=== PATIENT | male | born 1950 | race Caucasian/White ===

== ENCOUNTER 2016-06-23 14:13 | Inpatient (IN) | payer OTHER ==
[~2016-06-23] VITALS: Ht 172.7 cm; Wt 66.0 kg
[~2016-06-23 14:13] MED LIST: ACYC-57 PO; GABA100C8 PO
[2016-06-23] MEDS ORDERED: SODIUM CHLORIDE 0.9% 1,000 ML IV ONE (14:38)
[2016-06-23] MEDS ORDERED: ONDANSETRON 2MG/ML, 2ML IVPush ONE (15:00)
[2016-06-23] MEDS ORDERED: SODIUM CHLORIDE FLUSH 10ML SYR IVF ONE (15:00)
[2016-06-23] MEDS ORDERED: MORPHINE SULFATE 4 MG/ML, 1ML IVPush PRN ×2 (15:00→18:00)
[2016-06-23] MEDS ORDERED: ONDANSETRON 2MG/ML, 2ML ONE ×2 (15:15→17:02)
[2016-06-23] MEDS ORDERED: MORPHINE SULFATE 4 MG/ML, 1ML ONE (15:15)
[2016-06-23 15:27] LABS: BLOOD UREA NITROGEN 6 mg/dL (7-18)
[2016-06-23 15:28] LABS: ASPARTATE AMINO TRANSFERASE 17 U/L (15-37)
[2016-06-23] MEDS ORDERED: FENTANYL PF 250 MCG/5ML ONE (16:24)
[2016-06-23] MEDS ORDERED: MIDAZOLAM 1 MG/ML, 2ML ONE (16:24)
[2016-06-23] MEDS ORDERED: BUPIVACAINE/PF-EPI 0.5% 1:200K ONE (16:55)
[2016-06-23] MEDS ORDERED: CEFAZOLIN 1,000 MG ONE (17:02)
[2016-06-23] MEDS ORDERED: DEXAMETHASONE 4 MG/ML, 5ML ONE (17:02)
[2016-06-23] MEDS ORDERED: PROPOFOL 10 MG/ML, 20ML ONE (17:02)
[2016-06-23] MEDS ORDERED: KETOROLAC 30 MG/1 ML ONE (17:02)
[2016-06-23] MEDS ORDERED: ROCURONIUM 10 MG/ML ONE (17:02)
[2016-06-23] MEDS ORDERED: SUCCINYLCHOLINE 20 MG/ML, 10ML ONE (17:02)
[2016-06-23] MEDS ORDERED: LORazepam 2 MG/ML, 1ML IV PRN (18:00)
[2016-06-23] MEDS ORDERED: DIPHENHYDRAMINE 25 MG CAPSULE PO PRN (18:00)
[2016-06-23] MEDS ORDERED: ONDANSETRON 2MG/ML, 2ML IVPush PRN ×2 (18:00→18:30)
[2016-06-23] MEDS ORDERED: ACETAMINOPHEN 650 MG/20.3 ML UDC ONE (18:14)
[2016-06-23] MEDS ORDERED: FENTANYL PF 100 MCG/2ML ONE (18:14)
[2016-06-23] MEDS ORDERED: METOPROLOL 1 MG/ML, 5ML ONE (18:15)
[2016-06-23] MEDS ORDERED: ACETAMINOPHEN 325 MG TABLET ONE (18:15)
[2016-06-23] MEDS ORDERED: OXYcodone 5 MG/5 ML ORAL.SOL UDC ONE (18:15)
[2016-06-23] MEDS ORDERED: FENTANYL PF 100 MCG/2ML IV PRN (18:30)
[2016-06-23] MEDS ORDERED: OXYcodone 5 MG/5 ML ORAL.SOL UDC PO PRN (18:30)
[2016-06-23] MEDS ORDERED: MEPERIDINE/PF 25MG/0.5ML IVPush PRN (18:30)
[2016-06-23] MEDS ORDERED: METOPROLOL 1 MG/ML, 5ML IV PRN (18:30)
[2016-06-23] MEDS ORDERED: hydrALAzine 20 MG/ML, 1ML IV PRN (18:30)
[2016-06-23] MEDS ORDERED: PROMETHAZINE 25 MG/ML, 1ML IV PRN (18:30)
[2016-06-23] MEDS ORDERED: ACETAMINOPHEN 325 MG TABLET PO PRN (18:30)
[2016-06-23] MEDS ORDERED: LABETALOL 5MG/ML, 20ML IV PRN (18:30)
[2016-06-23] MEDS ORDERED: HYDROmorphone 1 MG/ML, 1ML IV PRN (18:30)
[2016-06-23 20:00] VITALS: BP 143/85
[2016-06-23] MEDS: KETOROLAC 30 MG/1 ML IV PRN (21:39)
[2016-06-23] MEDS: POTASSIUM CHLORIDE 20 MEQ in D5%-0.45% NACL 1,000 ML IV SCH (23:08)
[2016-06-24 04:00] VITALS: BP 115/65
[2016-06-24] MEDS: KETOROLAC 30 MG/1 ML IV PRN (04:22)
[2016-06-24 04:24] VITALS: BP 139/72
[2016-06-24] MEDS: POTASSIUM CHLORIDE 20 MEQ in D5%-0.45% NACL 1,000 ML IV SCH (07:27)
[2016-06-24 08:00] VITALS: BP 143/64
[2016-06-24] MEDS ORDERED: HYDR-882 PO (09:40)
[2016-06-24] MEDS ORDERED: ONDA4TAB7 PO (09:41)
[2016-06-24] MEDS ORDERED: ASPI-770 PO (11:32)
[2016-06-24] MEDS ORDERED: LOPE1LIQ6 PO (11:33)
[2016-06-24] MEDS ORDERED: POTASS (11:35)
[2016-06-24] MEDS ORDERED: potassium gluconate PO (11:36)
== END 2016-06-24 11:35 | disposition home or self-care (01) | DRG 351 ==
LOC: ED 15:15 → EDIP 16:29 → 4NOR 19:40
PROVIDERS: ADMIT Surgery; ATTEND Surgery
PROC: 0T9B70Z Drainage of Bladder with Drainage Device, Via Natural or Artificial Opening (ICD-10-PCS; 2016-06-23)
PROC: 0YU50JZ Supplement Right Inguinal Region with Synthetic Substitute, Open Approach (ICD-10-PCS; principal; 2016-06-23 17:30)
DX: K40.90 Unilateral inguinal hernia, without obstruction or gangrene, not specified as recurrent (principal); K86.1 Other chronic pancreatitis; F12.90 Cannabis use, unspecified, uncomplicated; I10 Essential (primary) hypertension; J44.9 Chronic obstructive pulmonary disease, unspecified; Z83.3 Family history of diabetes mellitus
CPT/HCPCS: 36415; 71010; 74020; 80053; 81001; 83690; 83735; 85025; 85610; 96361; 96374; 96375; J0690; J1100; J1885; J2250; J2405; J2704; J3010; J3480; C1781; J0330; J7030; Q0163

== ENCOUNTER 2018-02-14 11:44 | Observation (INO) | payer OTHER ==
[~2018-02-14] VITALS: Ht 172.7 cm; Wt 65.9 kg
[~2018-02-14 11:44] MED LIST changes: +ASPI81TA59 PO; +GABA-826 PO; -GABA100C8 PO; +HYDR-3653 PO; +LOPE1LIQ6 PO; +ONDA4TAB7 PO; +POTASS; +potassium gluconate PO
[2018-02-14] MEDS ORDERED: SODIUM CHLORIDE FLUSH 10ML SYR IVF ONE (12:00)
[2018-02-14] MEDS ORDERED: SODIUM CHLORIDE 0.9% 1,000ML IVBOLUS ONE (12:00)
[2018-02-14] MEDS ORDERED: INDO25CA5 PO (12:08)
[2018-02-14] MEDS ORDERED: GABA300C10 PO (12:08)
[2018-02-14] MEDS ORDERED: ALLO300T PO (12:08)
[2018-02-14 12:16] LABS: BASOPHILS # (AUTO) 0.03 x10^3/uL (0-0.1); BASOPHILS % (AUTO) 1 % (0-1); EOSINOPHILS # (AUTO) 0.07 x10^3/uL (0-0.4); EOSINOPHILS % (AUTO) 1 % (1-7); LYMPHOCYTES # (AUTO) 2.44 x10^3/uL (1-3.4); LYMPHOCYTES % (AUTO) 33 % (22-44); MD NO; MEAN CORPUSCULAR HEMOGLOBIN 32.4 pg (27.5-34.5); MEAN CORPUSCULAR HGB CONC 33.9 g/dL (33.2-36.2); MEAN CORPUSCULAR VOLUME 95.5 fL (81-97); MEAN PLATELET VOLUME 8.3 fL (7.4-10.4); MONOCYTES # (AUTO) 0.58 x10^3/uL (0.2-0.8); MONOCYTES % (AUTO) 8 % (2-9); NEUTROPHILS # (AUTO) 4.38 x10^3/uL (1.8-6.8); NEUTROPHILS % (AUTO) 58 % (42-75); PLATELET COUNT 243 x10^3/uL (130-400); RED CELL DISTRIBUTION WIDTH 15.2 % (9.4-14.8)
[2018-02-14 12:25] LABS: INTERNATIONAL NORMALIZED RATIO 1.03 (0.93-1.1); PROTHROMBIN TIME 10.7 Seconds (9.6-11.5)
[2018-02-14 12:27] LABS: ALANINE AMINOTRANSFERASE 15 U/L (12-78); ALBUMIN 2.9 g/dL (3.4-5.0); ANION GAP 6 mmol/L (5-15); CALCIUM 8.4 mg/dL (8.5-10.1); CHLORIDE 109 mmol/L (98-107); CREATININE 0.81 mg/dL (0.7-1.3)
[2018-02-14 12:30] LABS: ALKALINE PHOSPHATASE 61 U/L (45-117); BILIRUBIN,TOTAL 0.5 mg/dL (0.2-1.0); TOTAL PROTEIN 6.8 g/dL (6.4-8.2)
[2018-02-14 12:51] LABS: ACETONE, SERUM Negative (Negative)
[2018-02-14 13:57] LABS: MICROSCOPIC NOT IND
[2018-02-14 14:09] LABS: CULTURE INDICATED? NO
[2018-02-14 15:13] LABS: CLOSTRIDIUM DIFFICILE ANTIGEN NEGATIVE; CLOSTRIDIUM DIFFICILE TOXIN NEGATIVE (Negative)
[2018-02-14 15:51] VITALS: BP 159/80
[2018-02-14] MEDS ORDERED: LOPERAMIDE 2 MG CAPSULE PO PRN (16:30)
[2018-02-14] MEDS ORDERED: hydrALAzine 20 MG/ML, 1ML IVPush PRN (16:30)
[2018-02-14] MEDS ORDERED: ACETAMINOPHEN 325 MG TABLET PO PRN (16:30)
[2018-02-14] MEDS ORDERED: ONDANSETRON ODT 4 MG PO PRN (16:30)
[2018-02-14] MEDS ORDERED: ENALAPRILAT 1.25 MG/ML, 2ML IVPush PRN (16:30)
[2018-02-14] MEDS ORDERED: ONDANSETRON 2MG/ML, 2ML IVPush PRN (16:30)
[2018-02-14] MEDS ORDERED: LIDODERM 5% PATCH TD PRN (16:30)
[2018-02-14] MEDS: D5%-0.45NACL+KCL 20MEQ 1,000 ML IV SCH (17:08)
[2018-02-14] MEDS: GABAPENTIN 100 MG CAPSULE PO SCH ×2 (17:08→20:54)
[2018-02-14] MEDS: NICOTINE 21 MG/24 HR PATCH.TD24 TD SCH (17:08)
[2018-02-14] MEDS: ENOXAPARIN 40 MG/0.4 ML SQ SCH (17:09)
[2018-02-14 17:33] VITALS: BP 159/80
[2018-02-14 20:26] VITALS: BP 98/54
[2018-02-15] MEDS: D5%-0.45NACL+KCL 20MEQ 1,000 ML IV SCH ×2 (02:42→16:53)
[2018-02-15 03:33] VITALS: BP 120/75
[2018-02-15 05:29] LABS: BASOPHILS # (AUTO) 0.08 x10^3/uL (0-0.1); BASOPHILS % (AUTO) 1 % (0-1); EOSINOPHILS # (AUTO) 0.28 x10^3/uL (0-0.4); EOSINOPHILS % (AUTO) 4 % (1-7); LYMPHOCYTES # (AUTO) 2.69 x10^3/uL (1-3.4); LYMPHOCYTES % (AUTO) 35 % (22-44); MD NO; MEAN CORPUSCULAR HEMOGLOBIN 32.1 pg (27.5-34.5); MEAN CORPUSCULAR HGB CONC 33.9 g/dL (33.2-36.2); MEAN CORPUSCULAR VOLUME 94.5 fL (81-97); MEAN PLATELET VOLUME 9.1 fL (7.4-10.4); MONOCYTES # (AUTO) 0.53 x10^3/uL (0.2-0.8); MONOCYTES % (AUTO) 7 % (2-9); NEUTROPHILS # (AUTO) 4.05 x10^3/uL (1.8-6.8); NEUTROPHILS % (AUTO) 53 % (42-75); PLATELET COUNT 229 x10^3/uL (130-400); RED BLOOD COUNT 4.13 x10^6/uL (4.38-5.82); RED CELL DISTRIBUTION WIDTH 15.3 % (9.4-14.8)
[2018-02-15 05:34] LABS: CALCIUM 8.1 mg/dL (8.5-10.1); CHLORIDE 111 mmol/L (98-107)
[2018-02-15 05:39] LABS: ALANINE AMINOTRANSFERASE 15 U/L (12-78); ALBUMIN 2.6 g/dL (3.4-5.0); ALKALINE PHOSPHATASE 55 U/L (45-117); ANION GAP 6 mmol/L (5-15); BILIRUBIN,TOTAL 0.4 mg/dL (0.2-1.0); CREATININE 0.73 mg/dL (0.7-1.3); TOTAL PROTEIN 5.9 g/dL (6.4-8.2)
[2018-02-15 07:32] VITALS: BP 155/89
[2018-02-15] MEDS: GABAPENTIN 100 MG CAPSULE PO SCH ×3 (08:36→20:36)
[2018-02-15] MEDS: INDOMETHACIN 25 MG CAPSULE PO SCH (08:36)
[2018-02-15] MEDS: ALLOPURINOL 300 MG TABLET PO SCH (08:36)
[2018-02-15] MEDS: ASPIRIN 81 MG TABLET EC PO SCH (08:36)
[2018-02-15] MEDS ORDERED: MAGNESIUM SULFATE PMX 2GM/50ML 50 ML IV ONE (11:00)
[2018-02-15 12:22] VITALS: BP 179/89
[2018-02-15] MEDS ORDERED: OMNIPAQUE 350 MG/ML, 100ML BOTTLE ONE (13:17)
[2018-02-15] MEDS: ENOXAPARIN 40 MG/0.4 ML SQ SCH (16:53)
[2018-02-15] MEDS: NICOTINE 21 MG/24 HR PATCH.TD24 TD SCH (16:54)
[2018-02-15] MEDS: HYDROcodone/APAP 5/325 TABLET PO PRN (17:58)
[2018-02-15] MEDS ORDERED: LORazepam 0.5MG TABLET PO PRN (18:30)
[2018-02-15] MEDS ORDERED: LORazepam 1MG TABLET PO PRN ×4 (18:30)
[2018-02-15] MEDS ORDERED: LORazepam 2 MG/ML, 1ML IV PRN ×5 (18:30)
[2018-02-15 20:05] VITALS: BP 138/80
[2018-02-16] MEDS: D5%-0.45NACL+KCL 20MEQ 1,000 ML IV SCH ×2 (03:03→16:17)
[2018-02-16 03:11] VITALS: BP 134/73
[2018-02-16 06:00] LABS: ANION GAP 7 mmol/L (5-15); CALCIUM 7.7 mg/dL (8.5-10.1); CHLORIDE 107 mmol/L (98-107)
[2018-02-16 06:03] LABS: CREATININE 0.89 mg/dL (0.7-1.3)
[2018-02-16] MEDS ORDERED: MAGNESIUM SULFATE PMX 2GM/50ML 50 ML IV ONE (07:00)
[2018-02-16 08:08] VITALS: BP 138/74
[2018-02-16] MEDS: ASPIRIN 81 MG TABLET EC PO SCH (09:20)
[2018-02-16] MEDS: FOLIC ACID 1 MG TABLET PO SCH (09:20)
[2018-02-16] MEDS: ALLOPURINOL 300 MG TABLET PO SCH (09:20)
[2018-02-16] MEDS: INDOMETHACIN 25 MG CAPSULE PO SCH (09:20)
[2018-02-16] MEDS: GABAPENTIN 100 MG CAPSULE PO SCH ×3 (09:20→20:57)
[2018-02-16] MEDS: HYDROcodone/APAP 5/325 TABLET PO PRN (09:23)
[2018-02-16] MEDS: THIAMINE 100 MG in SODIUM CHLORIDE 0.9% 50 ML IV SCH (10:39)
[2018-02-16 12:26] VITALS: BP 149/80
[2018-02-16 14:30] VITALS: BP 148/76
[2018-02-16] MEDS: NICOTINE 21 MG/24 HR PATCH.TD24 TD SCH (16:17)
[2018-02-16] MEDS: ENOXAPARIN 40 MG/0.4 ML SQ SCH (16:17)
[2018-02-16 20:45] VITALS: BP 121/66
[2018-02-16] MEDS ORDERED: BEER 12 OZ CAN PO SCH (21:00)
[2018-02-17 00:49] VITALS: BP 176/87
[2018-02-17] MEDS: D5%-0.45NACL+KCL 20MEQ 1,000 ML IV SCH (01:30)
[2018-02-17 02:19] VITALS: BP 130/72
[2018-02-17 05:34] LABS: ANION GAP 8 mmol/L (5-15); CHLORIDE 108 mmol/L (98-107)
[2018-02-17 07:49] VITALS: BP 108/61
[2018-02-17] MEDS: FOLIC ACID 1 MG TABLET PO SCH (09:00)
[2018-02-17] MEDS: THIAMINE 100 MG in SODIUM CHLORIDE 0.9% 50 ML IV SCH (09:08)
[2018-02-17] MEDS: GABAPENTIN 100 MG CAPSULE PO SCH (09:09)
[2018-02-17] MEDS: ASPIRIN 81 MG TABLET EC PO SCH (09:09)
[2018-02-17] MEDS: INDOMETHACIN 25 MG CAPSULE PO SCH (09:09)
[2018-02-17] MEDS: ALLOPURINOL 300 MG TABLET PO SCH (09:09)
[2018-02-17] MEDS ORDERED: MAGNESIUM SULFATE PMX 2GM/50ML 50 ML IV ONE (09:30)
[2018-02-17 13:19] VITALS: BP 119/66
== END 2018-02-17 16:58 | disposition home or self-care (01) ==
LOC: ED 12:36 → INTOOBSV 14:45 → EDIP 14:45 → 3NE 14:59 → 4EST 02-15 20:26
PROVIDERS: ADMIT Internal Medicine; ATTEND Internal Medicine
DX: R62.7 Adult failure to thrive (principal); E83.42 Hypomagnesemia; E87.6 Hypokalemia; E86.0 Dehydration; E43 Unspecified severe protein-calorie malnutrition; E86.9 Volume depletion, unspecified; M06.9 Rheumatoid arthritis, unspecified; F10.10 Alcohol abuse, uncomplicated; F17.210 Nicotine dependence, cigarettes, uncomplicated; G89.29 Other chronic pain; I25.10 Atherosclerotic heart disease of native coronary artery without angina pectoris; I25.2 Old myocardial infarction; J18.9 Pneumonia, unspecified organism; J44.0 Chronic obstructive pulmonary disease with (acute) lower respiratory infection; K52.9 Noninfective gastroenteritis and colitis, unspecified; K86.1 Other chronic pancreatitis; M10.9 Gout, unspecified; Z83.3 Family history of diabetes mellitus; Z86.73 Personal history of transient ischemic attack (TIA), and cerebral infarction without residual deficits
CPT/HCPCS: 36415; 70470; 71260; 74177; 80048; 80053; 81003; 82010; 82140; 83605; 83690; 83735; 84100; 84443; 85025; 85610; 87046; 87324; 87427; 93005; 96361; 96365; 96366; 96368; 96372; 96375; 97162; 97164; 97165; 97530; 97535; 99285; G0378; G8978; G8979; G8980; J1650; J2060; J3411; J3475; J3480; J7030; Q9967; 96360

== ENCOUNTER 2018-08-12 13:48 | Inpatient (IN) | payer OTHER ==
[~2018-08-12] VITALS: Ht 172.7 cm; Wt 62.7 kg
[~2018-08-12 13:48] MED LIST changes: +ALLO300T PO; +GABA300C10 PO; +INDO25CA5 PO
--- NOTE | 2018-08-12 14:09 | NUR ---
REPORT FROM KE MOELLER, MOVE PT TO RM 18
--- NOTE | 2018-08-12 14:09 | NUR ---
TASK RN - PT BIB EMS FOR SYNCOPAL EPISODE. WITNESS BY . PT WAS IN SEATED POSITION AND PASSED OUT. NO FALL OR TRAUMA. PT IS A&OX4, NEURO INTACT. RESTING ON GURNEY CALL LIGHT IN REACH. SIDERAILS UP X 2. AT BEDSIDE. REPORT TO SUNNI LEON.
[2018-08-12 14:15] LABS: BASOPHILS # (AUTO) 0.07 x10^3/uL (0-0.1); BASOPHILS % (AUTO) 1 % (0-1); EOSINOPHILS # (AUTO) 0.21 x10^3/uL (0-0.4); EOSINOPHILS % (AUTO) 2 % (1-7); LYMPHOCYTES # (AUTO) 2.31 x10^3/uL (1-3.4); LYMPHOCYTES % (AUTO) 18 % (22-44); MD NO; MEAN CORPUSCULAR HEMOGLOBIN 31.5 pg (27.5-34.5); MEAN CORPUSCULAR HGB CONC 33.6 g/dL (33.2-36.2); MEAN CORPUSCULAR VOLUME 93.7 fL (81-97); MEAN PLATELET VOLUME 8.1 fL (7.4-10.4); MONOCYTES # (AUTO) 0.36 x10^3/uL (0.2-0.8); MONOCYTES % (AUTO) 3 % (2-9); NEUTROPHILS # (AUTO) 10.11 x10^3/uL (1.8-6.8); NEUTROPHILS % (AUTO) 77 % (42-75); PLATELET COUNT 279 x10^3/uL (130-400); RED BLOOD COUNT 4.55 x10^6/uL (4.38-5.82)
[2018-08-12 14:28] LABS: ALANINE AMINOTRANSFERASE 9 U/L (12-78); ANION GAP 8 mmol/L (5-15); CALCIUM 8.3 mg/dL (8.5-10.1); CHLORIDE 105 mmol/L (98-107)
[2018-08-12] MEDS ORDERED: SODIUM CHLORIDE 0.9% 1,000ML IVBOLUS ONE (14:30)
[2018-08-12 14:33] LABS: ALKALINE PHOSPHATASE 72 U/L (45-117); BILIRUBIN,TOTAL 0.7 mg/dL (0.2-1.0); CREATININE 1.04 mg/dL (0.7-1.3); TROPONIN I < 0.015 ng/mL (0.000-0.045)
[2018-08-12] MEDS ORDERED: MAGNESIUM SULFATE PMX 2GM/50ML 50 ML ONE (14:48)
[2018-08-12] MEDS ORDERED: POTASSIUM CHLORIDE 20 MEQ TAB.ER.PRT ONE (14:48)
[2018-08-12] MEDS ORDERED: POTASSIUM CHLORIDE 10% 40 MEQ/30 ML UDC PO ONE (15:00)
[2018-08-12] MEDS ORDERED: MAGNESIUM SULFATE PMX 2GM/50ML 50 ML IV ONE (15:00)
--- NOTE | 2018-08-12 15:15 | NUR ---
REPORT TO DAVIDE MOELLER
[2018-08-12] MEDS ORDERED: IBUPROFEN 600 MG TABLET PO PRN (16:00)
[2018-08-12] MEDS ORDERED: ACETAMINOPHEN 325 MG TABLET PO PRN (16:00)
[2018-08-12] MEDS ORDERED: NICOTINE 7 MG/24 HR PATCH.TD24 TD SCH (16:00)
[2018-08-12 16:15] VITALS: BP 129/67
[2018-08-12] MEDS ORDERED: ONDANSETRON 4 MG TABLET PO PRN ×2 (16:30→17:00)
[2018-08-12] MEDS ORDERED: LOPERAMIDE 2 MG CAPSULE PO PRN (17:00)
[2018-08-12] MEDS: HEPARIN 5,000 UNITS/ML, 1ML SQ SCH (18:00)
[2018-08-12] MEDS: SODIUM CHLORIDE 0.9% 1,000 ML IV SCH (18:00)
[2018-08-12 20:20] LABS: INTERNATIONAL NORMALIZED RATIO 1.01 (0.93-1.1); PROTHROMBIN TIME 10.6 Seconds (9.6-11.5)
[2018-08-12 20:23] LABS: ANION GAP 5 mmol/L (5-15); CALCIUM 7.7 mg/dL (8.5-10.1); CHLORIDE 109 mmol/L (98-107); CREATININE 0.98 mg/dL (0.7-1.3)
[2018-08-12] MEDS ORDERED: GABAPENTIN 100 MG CAPSULE ONE (20:56)
[2018-08-12] MEDS ORDERED: GABAPENTIN 300 MG CAPSULE PO SCH (21:00)
[2018-08-12] MEDS ORDERED: MAGNESIUM CHLORIDE 64 MG TABLET.DR PO SCH (21:00)
[2018-08-12] MEDS: GABAPENTIN 100 MG CAPSULE PO SCH (21:01)
[2018-08-12 21:05] VITALS: BP 152/76
[2018-08-12 21:07] VITALS: BP 127/76
[2018-08-12 21:09] VITALS: BP 127/74
[2018-08-12] MEDS ORDERED: LORazepam 0.5MG TABLET PO PRN (21:30)
[2018-08-12] MEDS ORDERED: POTASSIUM CHLORIDE 40 MEQ in SODIUM CHLORIDE 0.9% 500 ML IV ONE (21:30)
[2018-08-12] MEDS ORDERED: LORazepam 1MG TABLET PO PRN ×3 (21:30)
[2018-08-12] MEDS ORDERED: LORazepam 2 MG/ML, 1ML IV PRN (21:30)
[2018-08-13] MEDS: HEPARIN 5,000 UNITS/ML, 1ML SQ SCH ×2 (02:16→10:00)
[2018-08-13 02:18] VITALS: BP 114/64
[2018-08-13 02:22] VITALS: BP 147/75
[2018-08-13 02:26] VITALS: BP 147/75
[2018-08-13 05:33] LABS: ANION GAP 4 mmol/L (5-15); CALCIUM 7.8 mg/dL (8.5-10.1); CHLORIDE 115 mmol/L (98-107); CREATININE 0.76 mg/dL (0.7-1.3)
[2018-08-13] MEDS ORDERED: MAGNESIUM SULFATE PMX 2GM/50ML 50 ML IV ONE (07:00)
[2018-08-13 08:30] VITALS: BP 148/79
[2018-08-13] MEDS: GABAPENTIN 100 MG CAPSULE PO SCH ×2 (08:32→16:15)
[2018-08-13] MEDS ORDERED: MAGNESIUM CHLORIDE 64 MG TABLET.DR PO SCH (09:00)
[2018-08-13] MEDS ORDERED: ALLOPURINOL 300 MG TABLET PO SCH (09:00)
[2018-08-13] MEDS ORDERED: NICOTINE 21 MG/24 HR PATCH.TD24 TD SCH (09:00)
[2018-08-13] MEDS ORDERED: ASPIRIN 81 MG TABLET CHEW PO SCH (09:00)
[2018-08-13 13:11] LABS: ANION GAP 6 mmol/L (5-15); CALCIUM 7.9 mg/dL (8.5-10.1); CHLORIDE 109 mmol/L (98-107); CREATININE 0.65 mg/dL (0.7-1.3)
[2018-08-13 13:41] VITALS: BP 176/77
[2018-08-13] MEDS: SODIUM CHLORIDE 0.9% 1,000 ML IV SCH (15:42)
[2018-08-13 16:22] VITALS: BP 158/76
[2018-08-13] MEDS ORDERED: LOPE2CAP PO (16:44)
== END 2018-08-13 17:33 | disposition home health service (06) | DRG 641 ==
LOC: ED 14:14 → 4WST 15:24
PROVIDERS: ADMIT Family Medicine; ATTEND Internal Medicine
DX: E86.0 Dehydration (principal); K86.1 Other chronic pancreatitis; E44.0 Moderate protein-calorie malnutrition; F10.20 Alcohol dependence, uncomplicated; I95.1 Orthostatic hypotension; E87.6 Hypokalemia; F12.90 Cannabis use, unspecified, uncomplicated; K74.60 Unspecified cirrhosis of liver; B19.20 Unspecified viral hepatitis C without hepatic coma; E11.9 Type 2 diabetes mellitus without complications; E83.42 Hypomagnesemia; F17.210 Nicotine dependence, cigarettes, uncomplicated; I10 Essential (primary) hypertension; I25.10 Atherosclerotic heart disease of native coronary artery without angina pectoris; J44.9 Chronic obstructive pulmonary disease, unspecified; K52.9 Noninfective gastroenteritis and colitis, unspecified; M06.9 Rheumatoid arthritis, unspecified; M10.9 Gout, unspecified; Z79.82 Long term (current) use of aspirin; I25.2 Old myocardial infarction; Z81.1 Family history of alcohol abuse and dependence; Z83.3 Family history of diabetes mellitus; Z86.73 Personal history of transient ischemic attack (TIA), and cerebral infarction without residual deficits; Z68.21 Body mass index [BMI] 21.0-21.9, adult
CPT/HCPCS: 36415; 71045; 80048; 80053; 83735; 84443; 84484; 85025; 85610; 93005; 93306; 93880; 96365; G0378; J3480; J3475; J7030; J7040

== ENCOUNTER 2020-11-09 03:18 | Emergency (ER) | payer OTHER ==
[~2020-11-09] VITALS: Ht 170.2 cm; Wt 63.6 kg
[~2020-11-09 03:18] MED LIST changes: +INDO25CA22 PO; -INDO25CA5 PO; +LOPE2CAP PO
--- NOTE | 2020-11-09 06:40 | NUR ---
report to Bennett MOELLER
--- NOTE | 2020-11-09 06:45 | NUR ---
TOOK REPORT FROM GIDEON Cowart RN, ASSUME CARE AT THIS TIME.
[2020-11-09 08:46] VITALS: BP 124/74
== END 2020-11-09 08:48 | disposition home or self-care (01) ==
LOC: ED 03:48
DX: R19.7 Diarrhea, unspecified (principal); Z72.9 Problem related to lifestyle, unspecified; M06.9 Rheumatoid arthritis, unspecified; I95.9 Hypotension, unspecified; F17.200 Nicotine dependence, unspecified, uncomplicated
CPT/HCPCS: 99281

== ENCOUNTER 2020-11-12 20:55 | Observation (INO) | payer OTHER ==
[~2020-11-12] VITALS: Ht 172.7 cm; Wt 54.5 kg
--- NOTE | 2020-11-12 21:15 | NUR ---
PT PATI, PT F[place] AND AT THAT TIME DID NOT KNOW HOW HE HAD GOTTEN THERE, EMS ARRIVED ON SCENE AND PLACED PT ON A LEGAL HOLD FOR INABLITY TO CARE FOR HIMSELF, PT ARRIVED TO ER AND WAS A/OX4 WITH A GCS OF 15, PT DENIES SI/SH AT THIS TIME, ER MD AT BEDSIDE AND L2K WILL BE CONTINUED. PT IS PLEASANT AND WELL KEPT AND UNDERSTANDS POC, NAD AT THIS TIME
[2020-11-12 21:25] VITALS: BP 151/89
[2020-11-12 21:56] LABS: MICROSCOPIC NOT IND
[2020-11-12 22:05] LABS: BASOPHILS % (AUTO) 2 % (0-1); EOSINOPHILS % (AUTO) 4 % (1-7); LYMPHOCYTES % (AUTO) 38 % (22-44); MEAN CORPUSCULAR HEMOGLOBIN 32.6 pg (27.5-34.5); MEAN CORPUSCULAR HGB CONC 34.3 g/dL (33.2-36.2); MEAN PLATELET VOLUME 8.4 fL (7.4-10.4); MONOCYTES % (AUTO) 6 % (2-9); NEUTROPHILS % (AUTO) 50 % (42-75); PLATELET COUNT 260 x10^3/uL (130-400); RED BLOOD COUNT 4.24 x10^6/uL (4.38-5.82); RED CELL DISTRIBUTION WIDTH 13.6 % (9.4-14.8)
[2020-11-12 22:07] LABS: AMPHETAMINE SCREEN, URINE Negative (Negative); BARBITURATE SCREEN, URINE Negative (Negative); BENZODIAZEPINE SCREEN, URINE Negative (Negative); CANNABINOID SCREEN, URINE Negative (Negative); COCAINE SCREEN, URINE Negative (Negative); METHADONE SCREEN, URINE Negative (Negative); OPIATE SCREEN, URINE Negative (Negative)
[2020-11-12 22:18] LABS: ALBUMIN 2.6 g/dL (3.4-5.0); CALCIUM 7.8 mg/dL (8.5-10.1); SALICYLATE LEVEL 2.4 mg/dL (2.8-20.0)
--- NOTE | 2020-11-12 22:25 | NUR ---
PT BELONGINGS PLACED IN LOCKER WITH PT LABEL ON ALL BELONGING BAGS, PT GIVEN MEAL TRAY, PT NAD, PT CALM AND LAYING IN BED, GARAGE DOORS NOT DOWN FOR CONTINUOUS VITAL SIGN MONITORING
[2020-11-12 22:39] LABS: ALANINE AMINOTRANSFERASE 15 U/L (12-78); ALKALINE PHOSPHATASE 61 U/L (45-117); ANION GAP 6 mmol/L (5-15); BILIRUBIN,TOTAL 0.5 mg/dL (0.2-1.0); CHLORIDE 105 mmol/L (98-107); CREATININE 0.74 mg/dL (0.7-1.3); TOTAL PROTEIN 6.8 g/dL (6.4-8.2)
[2020-11-12] MEDS ORDERED: POTASSIUM CHLORIDE 20 MEQ TAB.ER.PRT ONE (23:11)
[2020-11-12] MEDS ORDERED: POTASSIUM CHLORIDE 20 MEQ TAB.ER.PRT PO ONE (23:30)
--- NOTE | 2020-11-13 02:58 | NUR ---
PT ASLEEP IN BED, ALL NEEDS IN REACH, CALL LIGHT IN REACH, NAD AT THIS TIME
--- NOTE | 2020-11-13 03:11 | NUR ---
JOSE G ([facility]) SAID THERE IS NO ONE TO DO ADMISSIONS UPSTAIRS, SO THEY CANNOT LOOK AT PT TILL MORNING FAXING PACKET TO [facility], [facility], [facility], [facility], [facility]
--- NOTE | 2020-11-13 04:38 | NUR ---
THIS RN SPOKE WITH MAGAN MOELLER FROM [facility], DR. KRAUS ACCEPTING DOCTOR, THIS RN GAVE REPORT TO MAGAN MOELLER
--- NOTE | 2020-11-13 05:24 | NUR ---
PT ASLEEP IN BED, ALL NEEDS IN REACH, CALL LIGHT IN REACH, NAD AT THIS TIME, SITTER IN LINE OF SIGHT
== END 2020-11-13 06:38 | disposition home or self-care (01) ==
LOC: ED 22:04 → EDIP 22:51
PROVIDERS: ADMIT Emergency Medicine; ATTEND Emergency Medicine
DX: R62.7 Adult failure to thrive (principal); R53.1 Weakness; R41.82 Altered mental status, unspecified; I10 Essential (primary) hypertension; M06.9 Rheumatoid arthritis, unspecified; J98.11 Atelectasis; F17.200 Nicotine dependence, unspecified, uncomplicated; Z79.899 Other long term (current) drug therapy
CPT/HCPCS: 36415; 70450; 71045; 80053; 80299; 80307; 80320; 80329; 81003; 85025; 99285; G0378; G0480

== ENCOUNTER 2020-11-21 13:05 | Emergency (ER) | payer OTHER ==
[~2020-11-21] VITALS: Ht 172.7 cm; Wt 57.5 kg
[2020-11-21 13:35] VITALS: BP 147/56
[2020-11-21 14:32] LABS: BASOPHILS % (AUTO) 1 % (0-1); EOSINOPHILS % (AUTO) 3 % (1-7); LYMPHOCYTES % (AUTO) 29 % (22-44); MEAN CORPUSCULAR HEMOGLOBIN 31.8 pg (27.5-34.5); MEAN CORPUSCULAR HGB CONC 33.4 g/dL (33.2-36.2); MEAN PLATELET VOLUME 8.3 fL (7.4-10.4); MONOCYTES % (AUTO) 5 % (2-9); NEUTROPHILS % (AUTO) 62 % (42-75); PLATELET COUNT 313 x10^3/uL (130-400); RED BLOOD COUNT 4.07 x10^6/uL (4.38-5.82)
[2020-11-21 14:42] LABS: ALANINE AMINOTRANSFERASE 22 U/L (12-78); ALBUMIN 2.9 g/dL (3.4-5.0); ANION GAP 9 mmol/L (5-15); CALCIUM 7.6 mg/dL (8.5-10.1); CHLORIDE 110 mmol/L (98-107); CREATININE 0.71 mg/dL (0.7-1.3)
[2020-11-21 14:46] LABS: ALKALINE PHOSPHATASE 65 U/L (45-117); BILIRUBIN,TOTAL 0.5 mg/dL (0.2-1.0); TROPONIN I < 0.015 ng/mL (0.000-0.045)
[2020-11-21] MEDS ORDERED: POTASSIUM CHLORIDE 20 MEQ TAB.ER.PRT PO ONE (16:30)
--- NOTE | 2020-11-21 16:30 | NUR ---
retail sales specialist note: No answer from lobby when pt called for room.
--- NOTE | 2020-11-21 16:44 | NUR ---
rn gastroenterology note: No answer from lobby when pt called for room.
--- NOTE | 2020-11-21 17:21 | NUR ---
outside deliverer note: No answer from lobby when pt called for room.
== END 2020-11-21 17:35 | disposition left against medical advice (07) ==
LOC: ED 17:29
DX: R55 Syncope and collapse (principal)
CPT/HCPCS: 36415; 80053; 84484; 85025; 93005; 99283

== ENCOUNTER 2020-11-27 16:46 | Emergency (ER) | payer OTHER ==
[~2020-11-27] VITALS: Ht 172.7 cm; Wt 55.0 kg
--- NOTE | 2020-11-27 17:22 | NUR ---
BIB EMS WITH CHIEF C/O AFTER BEING FOUND DOWN BY BUS STATION. PATIENT C/O SOB AND BODY ACHES AND CHILLS, AFEBRILE. 18 GAUGE IV STARTED BY EMS, VSS EN ROUTE, A&OX4. UPON ASSESSMENT PATIENT HAD SOILED HIMSELF, PATIENT CLEANED AND PLACED INTO GOWN, POOR HISTORIAN, WHEN ASKED IF HE'S HAD THE COVID VACCINE PATIENT STATES "I THINK SO." PATIENT KNOWS WHERE HE IS AT AND WHY, BUT ANSWERS OTHER QUESTIONS WITH "I THINK SO." CONNECTED TO MONITOR, VSS, CALL LIGHT WITHIN REACH, SIDE RAILS UP X2.
[2020-11-27 17:47] LABS: BASOPHILS % (AUTO) 1 % (0-1); EOSINOPHILS % (AUTO) 2 % (1-7); LYMPHOCYTES % (AUTO) 24 % (22-44); MEAN CORPUSCULAR HEMOGLOBIN 32.2 pg (27.5-34.5); MEAN CORPUSCULAR HGB CONC 33.9 g/dL (33.2-36.2); MEAN PLATELET VOLUME 8.2 fL (7.4-10.4); MONOCYTES % (AUTO) 7 % (2-9); NEUTROPHILS % (AUTO) 66 % (42-75); PLATELET COUNT 292 x10^3/uL (130-400); RED BLOOD COUNT 3.98 x10^6/uL (4.38-5.82)
[2020-11-27 17:59] LABS: ALANINE AMINOTRANSFERASE 14 U/L (12-78); ALBUMIN 2.3 g/dL (3.4-5.0); ANION GAP 7 mmol/L (5-15); CALCIUM 7.6 mg/dL (8.5-10.1); CHLORIDE 107 mmol/L (98-107)
[2020-11-27 18:05] LABS: ALKALINE PHOSPHATASE 57 U/L (45-117); BILIRUBIN,TOTAL 0.4 mg/dL (0.2-1.0); TOTAL PROTEIN 6.4 g/dL (6.4-8.2)
--- NOTE | 2020-11-27 18:12 | NUR ---
PATIENT RESTING IN GURNEY WITH EYES CLOSED, RESP EVEN AND UNLABORED, CONNECTED TO MONITOR, VSS, SIDE RAILS UP X2, CALL LIGHT WITHIN REACH. PATIENT UP FOR RECHECK.
[2020-11-27] MEDS ORDERED: ACETAMINOPHEN 325 MG TABLET PO ONE (19:00)
[2020-11-27] MEDS ORDERED: POTASSIUM CHLORIDE 20 MEQ TAB.ER.PRT PO ONE (19:00)
[2020-11-27] MEDS ORDERED: ACETAMINOPHEN 325 MG TABLET ONE (19:09)
[2020-11-27] MEDS ORDERED: POTASSIUM CHLORIDE 20 MEQ TAB.ER.PRT ONE (19:09)
--- NOTE | 2020-11-27 19:37 | NUR ---
ATTEMPTED TO DISCHARGE PATIENT. PATIENT STATED THAT HE DOES NOT HAVE A PLACE TO GO TO. SPOKE WITH PRIMARY PROVIDER. WILL CONTACT SOCIAL WORK REGARDING AID WITH PATIENT. PATIENT CLEARED FOR DISCHARGE. NO NOTED ADDITIONAL NEEDS AT THIS TIME. PATIENT VERBALIZED UNDERSTANDING OF SELF CARE AND FOLLOW UP CARE. VSS. NO ACUTE DISTRESS. PATIENT AMBULATORY TO DISCHARGE WITHOUT COMPLICATIONS.
[2020-11-27 20:07] VITALS: BP 129/74
--- NOTE | 2020-11-27 20:07 | NUR ---
PATIENT GIVEN TAXI VOUCHER TO [facility]. PATIENT VERBALIZED UNDERSTANDING OF SAFE RIDE AND SAFE PLACE TO BE DISCHARGED TO. PATIENT IN OWN WHEELCHAIR TO DISCHARGE DESK.
== END 2020-11-27 20:08 | disposition home or self-care (01) ==
LOC: ED 17:48
DX: B34.9 Viral infection, unspecified (principal); Z20.822 Contact with and (suspected) exposure to COVID-19; E87.6 Hypokalemia; R50.9 Fever, unspecified; I10 Essential (primary) hypertension
CPT/HCPCS: 36415; 71045; 80053; 82728; 83615; 84145; 85025; 86140; 93005; 99284; U0003; U0005

== ENCOUNTER 2020-12-21 13:33 | Inpatient (IN) | payer OTHER ==
[~2020-12-21] VITALS: Ht 172.7 cm; Wt 53.5 kg
[2021-01-01 07:32] VITALS: BP 111/67
== END 2021-01-01 13:30 | disposition home or self-care (01) | DRG 70 ==
LOC: ED 15:45 → 3N 15:46
PROVIDERS: ADMIT Family Medicine; ATTEND Hospitalist
DX: G93.41 Metabolic encephalopathy (principal); E43 Unspecified severe protein-calorie malnutrition; E51.2 Wernicke's encephalopathy; L03.116 Cellulitis of left lower limb; Z68.1 Body mass index [BMI] 19.9 or less, adult; J98.11 Atelectasis; L03.115 Cellulitis of right lower limb; E83.42 Hypomagnesemia; F17.210 Nicotine dependence, cigarettes, uncomplicated; E87.6 Hypokalemia; I25.10 Atherosclerotic heart disease of native coronary artery without angina pectoris; F10.10 Alcohol abuse, uncomplicated; Y90.9 Presence of alcohol in blood, level not specified; B19.20 Unspecified viral hepatitis C without hepatic coma; I10 Essential (primary) hypertension; M06.9 Rheumatoid arthritis, unspecified; Z66 Do not resuscitate; M10.9 Gout, unspecified; F12.90 Cannabis use, unspecified, uncomplicated; R26.9 Unspecified abnormalities of gait and mobility; Z20.822 Contact with and (suspected) exposure to COVID-19; F03.90 Unspecified dementia, unspecified severity, without behavioral disturbance, psychotic disturbance, mood disturbance, and anxiety; Z59.0 Homelessness; I25.2 Old myocardial infarction; Z86.73 Personal history of transient ischemic attack (TIA), and cerebral infarction without residual deficits